=== PATIENT | female | born 1940 | race Caucasian/White ===

== ENCOUNTER → 2025-01-24 13:06 | Outpatient (REF) | payer OTHER, SELFPAY | LOC: RAD 13:06 | PROVIDERS: ATTENDING PHYSICIAN Physician Assistant; FAMILY PHYSICIAN Internal Medicine | DX: A69.20 Lyme disease, unspecified (principal); M13.80 Other specified arthritis, unspecified site; M25.50 Pain in unspecified joint; M79.89 Other specified soft tissue disorders; M81.0 Age-related osteoporosis without current pathological fracture; R53.83 Other fatigue | CPT/HCPCS: 73130 ==

== ENCOUNTER → 2025-04-10 10:38 | Outpatient (REF) | payer OTHER, SELFPAY | LOC: HWRAD 10:38 | PROVIDERS: ATTENDING PHYSICIAN Physician Assistant; FAMILY PHYSICIAN Internal Medicine | DX: M81.0 Age-related osteoporosis without current pathological fracture (principal) | CPT/HCPCS: 77080 ==